=== PATIENT | female | born 1965 ===

== ENCOUNTER 2019-11-28 21:33 | Emergency (ER) | payer OTHER ==
[~2019-11-28] VITALS: Ht 162.6 cm; Wt 54.4 kg
--- NOTE | 2019-11-28 22:07 | NUR ---
Dr. Pickard at bedside for MSE.
[2019-11-28 22:15] VITALS: BP 151/99
--- NOTE | 2019-11-28 22:15 | NUR ---
Patient discharged to home in stable conditon. Written and verbal after care instructions given. Patient verbalizes understanding of instructions. Pt ambulated out of ER with steady gait, no acute signs of distress, VSS, all belongings taken.
== END 2019-11-28 22:15 | disposition home or self-care (01) ==
LOC: ER 21:33
DX: F10.129 Alcohol abuse with intoxication, unspecified (principal); Y90.9 Presence of alcohol in blood, level not specified
CPT/HCPCS: A4663

== ENCOUNTER 2019-11-29 19:27 | Emergency (ER) | payer OTHER ==
[~2019-11-29] VITALS: Ht 162.6 cm; Wt 54.4 kg
--- NOTE | 2019-11-29 21:30 | NUR ---
Patient resting on gurny in room with no distress noted.
--- NOTE | 2019-11-30 01:45 | NUR ---
Patient ambulatory with steady gait. No distress noted. A/Ox3.
[2019-11-30 01:54] VITALS: BP 138/88
--- NOTE | 2019-11-30 01:54 | NUR ---
Patient discharged to home in stable conditon. Written and verbal after care instructions given. Patient verbalizes understanding of instructions. Walked out of ER with no distress noted.
== END 2019-11-30 02:01 | disposition home or self-care (01) ==
LOC: ER 19:33
DX: F10.129 Alcohol abuse with intoxication, unspecified (principal); Y90.9 Presence of alcohol in blood, level not specified; Z86.39 Personal history of other endocrine, nutritional and metabolic disease; Z63.0 Problems in relationship with spouse or partner
CPT/HCPCS: A4663